=== PATIENT | male | born 1990 | race Caucasian/White ===

== ENCOUNTER 2021-04-19 07:56 | Day surgery (SDC) | payer OTHER ==
--- NOTE | 2021-04-19 08:03 | HP ---
DATE OF SURGERY: 04/19/2021 HISTORY OF PRESENT ILLNESS: The patient is a 30 year-old with some bloody stools and prior colonoscopy years ago. History of abdominal pain, occasional some aches mid abdomen but nothing new. No prior abdominal surgeries. Some increased reflux, history of bloody stools. He is in need of upper endoscopy to evaluate for gastritis, peptic ulcer disease, esophagitis or other etiology as well as given the bloody stools he needs a colonoscopy for further evaluation. PAST MEDICAL HISTORY: He has history of atrial valve leak in the past, he said. Chronic obstructive pulmonary disease. Reflux. Environmental allergies. PAST SURGICAL HISTORY: MEDICATIONS: Omeprazole, inhaler Albuterol, Singulair. ALLERGIES: NKDA. FAMILY HISTORY: Negative for colon cancer. SOCIAL HISTORY: No smoking or alcohol abuse. REVIEW OF SYSTEMS: Fourteen systems reviewed. No chest pain or palpitations. He has some chronic lung issues. Other systems negative or noncontributory as above and per preadmission questionnaire. PHYSICAL EXAMINATION: GENERAL: No acute distress. HEENT: Sclerae nonicteric. NECK: No JVD. CHEST: Equal excursion, nonlabored breathing. CVS: Regular rate and rhythm. ABDOMEN: Soft. No peritoneal signs. EXTREMITIES: No significant edema. NEURO: Alert, oriented, moving extremities symmetrically. No gross motor deficits noted. RECTAL: Deferred timed to endoscopy exam. PSYCH: Appropriate mood and affect. IMPRESSION: Increased reflux. He needs upper endoscopy to evaluate for peptic ulcer disease, gastritis, esophagitis or other etiology. He has had some rectal bleeding. He is in need of colonoscopy for further evaluation to evaluate for colitis, neoplasia, polyps or other etiology. Risks and benefits explained in detail but not limited to bleeding or infection, risk of bowel injury or perforation possibly requiring open procedure, risk of missed or nondiagnosis or incomplete exam possibly requiring barium enema, barium swallow or other studies or procedures. Also inability to diagnose the etiology of his symptoms, general risk of anesthesia or sedation, risk of bowel prep but not limited to. He understands and agrees to the planned procedure, will proceed with colonoscopy to evaluate for his rectal bleeding as well as upper endoscopy to evaluate his increased reflux.
[2021-04-19] MEDS ORDERED: Lactated Ringers 1,000 ML IV SCH (09:00)
[2021-04-19] MEDS ORDERED: DIPRIVAN 200 MG/20 ML IV ONE (10:20)
[2021-04-19] MEDS ORDERED: Xylocaine-Mpf 2% 5 Ml Vial ONE (10:38)
[2021-04-19 11:58] VITALS: O2SAT 96
[2021-04-19 12:14] VITALS: BP 133/67; PULSE 82
--- NOTE | 2021-04-20 08:03 | OP ---
SURGERY DATE/TIME: 04/19/2021 1039 PREOPERATIVE DIAGNOSES: 1) History of some rectal bleeding, history of some increased reflux, need for upper and lower endoscopy to evaluate for gastritis, peptic ulcer disease, esophagitis, colitis or other etiology. 2) ASA Class II. POSTOPERATIVE DIAGNOSES: 1) Minimal to mild gastritis. 2) Plus or minus short segment distal gastroesophagitis versus normal variation of gastroesophageal junction. 3) Some mild erythema of the esophagus, path pending to evaluate for eosinophilic esophagitis. 4) Minimal internal hemorrhoids. No signs of any large polyps, masses or obstructing lesions in the colon, just some mild colon erythema path pending to evaluate for microscopic colitis versus normal variation. PROCEDURES: 1) EGD with cold biopsy of small bowel to evaluate for celiac sprue. 2) Cold biopsy of antrum to evaluate for Helicobacter pylori. 3) Cold biopsy of distal esophagus to evaluate for distal gastroesophagitis. 4) Random cold biopsies mid esophagus to evaluate for eosinophilic esophagitis. 5) Colonoscopy to terminal ileum. 6) Retrograde ileoscopy. 7) Random cold biopsies of ileum to evaluate for microscopic ileitis. 8) Random cold biopsies of colon to evaluate for microscopic colitis. SURGEON: Dr. Ralf Villareal. ANESTHESIA: MAC. ESTIMATED BLOOD LOSS: Minimal. INDICATIONS: As noted above. Risks and benefits explained in detail but not limited to and consent obtained. DESCRIPTION OF PROCEDURE AND FINDINGS: The patient is taken to the operating room. MAC anesthesia introduced. After official time out and no disagreement with planned procedure, bite block positioned. Video gastroscope easily passed down the esophagus through the patent pylorus to the junction of second and third portion of the duodenum. Third portion of the duodenum, second and first portions were grossly unremarkable. No signs of any obvious ulcers or inflammatory lesions. Biopsies were taken to evaluate for celiac sprue given symptom complaint. The scope pulled back into the stomach. He had some mild gastric erythema consistent with some minimal to mild gastritis. Cold biopsy taken to evaluate for Helicobacter pylori. There were no signs of any large polyps, masses, ulcers or any other mucosal lesions other than the inflammation. On retroflex the gastroesophageal junction snug against the scope. No signs of any significant hiatal hernia. Gastroesophageal junction is 40 cm. There may be a 1.5 mm or so maybe of some distal gastroesophagitis versus normal variation of the gastroesophageal junction. Cold biopsy taken. Good hemostasis noted. Further up in the esophagus, he just had some mild erythema and some random cold biopsies were taken to evaluate for eosinophilic esophagitis. Good hemostasis noted. The scope is withdrawn. The patient tolerated this part of the procedure well. Attention is then turned to colonoscopy. Digital rectal exam did not reveal any rectal masses. He did have some minimal internal hemorrhoids. Video colonoscope inserted and passed up through the tortuous sigmoid, descending, transverse colon and ascending colon around to the cecum. At the terminal ileum retrograde ileoscopy is performed. It is grossly unremarkable but given his symptom complaints some cold biopsies taken random in ileum to evaluate for microscopic ileitis, some random cold biopsies of the colon to evaluate for microscopic colitis. He had just some trace erythema of the colon versus prep irritation. Cold biopsy taken to evaluate for microscopic colitis. The scope is slowly and carefully withdrawn. There were no signs of any large polyps, masses or obstructing lesions. He had some minimal internal hemorrhoids, some random cold biopsies were taken to evaluate for microscopic colitis. Findings discussed with the family out in the waiting area. Re-evaluate his umbilical area when he returns to the office in the next couple of weeks as I will be out of town next week. Otherwise no signs of any large polyps, masses or ulcers. I will see him back in the office.
== END 2021-04-19 12:25 | disposition home or self-care (01) ==
LOC: SDC 07:56
PROVIDERS: ATTEND Surgery
DX: K29.70 Gastritis, unspecified, without bleeding (principal); K21.9 Gastro-esophageal reflux disease without esophagitis; K20.90 Esophagitis, unspecified without bleeding; K64.8 Other hemorrhoids
CPT/HCPCS: J2704

== ENCOUNTER 2021-06-14 10:37 | Day surgery (SDC) | payer OTHER ==
--- NOTE | 2021-06-14 08:35 | HP ---
DATE OF SURGERY: 06/14/2021 HISTORY OF PRESENT ILLNESS: The patient is a 30 year-old who had a mid-abdomen incarcerated ventral hernia likely preperitoneal fat or omentum, is in need of repair. PAST MEDICAL HISTORY: Reflux, chronic obstructive pulmonary disease, asthma, seasonal allergies. The patient denied any chronic heart issues. PAST SURGICAL HISTORY: Colonoscopy in the past. Upper endoscopy in the past. MEDICATIONS: Omeprazole, Singulair, Albuterol inhaler. ALLERGIES: NKDA. FAMILY HISTORY: Negative in regards to this problem. SOCIAL HISTORY: No alcohol abuse. REVIEW OF SYSTEMS: Fourteen systems reviewed. No chest pain or palpitations. Other systems negative or noncontributory as above and per preadmission questionnaire. PHYSICAL EXAMINATION: GENERAL: No acute distress. HEENT: Sclerae nonicteric. NECK: No JVD. CHEST: Equal excursion, nonlabored breathing. CVS: Regular rate and rhythm. ABDOMEN: Soft. No peritoneal signs. Incarcerated ventral hernia. EXTREMITIES: No significant edema. NEURO: Alert, oriented, moving extremities symmetrically. PSYCH: Appropriate mood and affect. IMPRESSION: Incarcerated ventral hernia. I feel the patient will benefit from repair. Discussed option of laparoscopic possible open repair with mesh. Risk and benefits explained in detail but not limited to bleeding or infection, risk of trocar injury or hernia, risk of bowel, bladder, blood vessel injury, risk of adhesion, scar formation or obstruction. Perioperative risk of aches, pains, burning, numbness possibly chronic in nature. Risk of hematoma or seroma formation. Remote risk of mesh infection possibly requiring removal. Remote risk of mesh fracture or failure possibly creating issues with viscera or other structures or other procedures, general risk of anesthesia, deep venous thrombosis, pulmonary embolism, pneumonia, risk of hernia recurrence but not limited to. He understands and agrees to the planned procedure and will proceed with outpatient laparoscopic assisted repair of incarcerated ventral hernia repair with mesh possible open.
[~2021-06-14 10:37] MED LIST: CEFAZOLIN 2 GM-D5W BAG** 2 GM/50 ML ML IV ONE; CEFAZOLIN 2 GM-D5W BAG** 2 GM/50 ML ML IV SCH; Lactated Ringers 1,000 ML IV ONE; Lactated Ringers 1,000 ML IV SCH; Sensorcaine 0.25% 10 ML ONE
[2021-06-14] MEDS ORDERED: Zofran 4 MG/2 ML VIAL ONE ×2 (12:55→16:21)
[2021-06-14] MEDS ORDERED: Versed 2 MG/2 ML Injection ONE (12:55)
[2021-06-14] MEDS ORDERED: TORAdol 30 mg Injection ONE (12:55)
[2021-06-14] MEDS ORDERED: BRIDION 200MG/2ML IV ONE (12:55)
[2021-06-14] MEDS ORDERED: DIPRIVAN 200 MG/20 ML IV ONE (12:55)
[2021-06-14] MEDS ORDERED: Decadron 4 MG INJ ONE ×2 (12:55→14:14)
[2021-06-14] MEDS ORDERED: Xylocaine-Mpf 2% 5 Ml Vial ONE (12:55)
[2021-06-14] MEDS ORDERED: Zemuron 100 MG/10 ML ONE (12:55)
[2021-06-14] MEDS ORDERED: SUBLIMAZE 100 MCG/2 ML ONE ×3 (12:55→15:18)
[2021-06-14] MEDS ORDERED: EPINEPHRINE 1MG/ML AMP ONE (14:14)
[2021-06-14] MEDS ORDERED: Naropin 0.5% 30 ML VIAL ONE (14:14)
[2021-06-14] MEDS ORDERED: Triple Antibiotic Ointment ONE (14:17)
[2021-06-14] MEDS ORDERED: Hydromorphone 1 mg/ml Injection ONE (15:18)
[2021-06-14] MEDS ORDERED: Zofran 4 MG/2 ML VIAL IV PRN (16:20)
[2021-06-14 17:54] VITALS: O2SAT 97
[2021-06-14 17:55] VITALS: BP 137/91; PULSE 104
--- NOTE | 2021-06-15 11:50 | OP ---
SURGERY DATE/TIME: 06/14/2021 1303 PREOPERATIVE DIAGNOSIS: Incarcerated ventral hernia. POSTOPERATIVE DIAGNOSIS: Incarcerated ventral hernia. PROCEDURE: Laparoscopic repair of incarcerated ventral hernia with mesh. SURGEON: Dr. Ralf Villareal. ANESTHESIA: General. ESTIMATED BLOOD LOSS: Minimal. INDICATIONS: As noted above. Risks and benefits explained in detail and not limited to and consent obtained. DESCRIPTION OF PROCEDURE AND FINDINGS: The patient is taken to the operating room. General anesthesia induced. Abdomen prepped and draped in usual sterile fashion. After official time out and no disagreement with planned procedure, a transverse incision made left upper quadrant. Fascia grasped and pulled upward. Veress needle inserted and tested with saline. Pneumoperitoneum accomplished opening pressure 0 to 15. A 5 mm bladeless port and camera inserted without difficulty. There is no evidence of any intra-abdominal injury secondary to trocar or port placement. A left mid abdomen 5 mm port, left lower quadrant 5 mm port and a right mid abdomen 5 mm ports were placed under direct vision of the camera. There is no evidence of any intra-abdominal injury secondary to Veress needle or port placement. The preperitoneal space is carefully entered clearing around in the rectus space, posterior to the posterior rectal sheath circumferentially around the mid abdomen. The hernia is a little bit off to the left of the midline. The mid abdomen had a large amount of incarcerated preperitoneal and omental fat this is slowly and carefully reduced. It took some time but slowly and carefully accomplished. Once this is accomplished, the defect is carefully measured in order to have a good overlap in all directions. It was felt the size [address] mesh was the most appropriate sized mesh to use in his particular case. Mesh carefully marked out to where the transfascial stay sutures were to be placed to four quadrants. Four quadrant 0 Ethibond placed on the mesh. The strap was then removed. 0 Vicryl placed in the center of the mesh to be pulled up to center the mesh. At this point a small transverse incision was made to allow for the mesh to be placed in and transfascial #1 Vicryl placed three of these were placed about 1 cm apart bringing the defect back towards midline, weakened edges of the fascia. These were just tied temporarily with a port placed through this defect. The mesh was then wet and easily placed in the abdomen. Transfascial #1 Vicryl were used to bring the weakened fascia back to the midline in interrupted fashion. Once this was accomplished the suture passer was used to pull the centering Vicryl suture up in the midline centering the mesh, the four quadrant 0 Ethibond is then pulled up to four quadrant stab wounds and secured transfascially. This is all done with the pressure turned down to 8 to avoid distortion of the abdominal wall. Once this is accomplished the ProTacker was used about 1 cm apart around the margins with additional tacks placed centrally closer to the true edges of the fascia to reduce the risk of seroma formation. The mesh is nice and flat in tension free manner. Again, the pressure had been turned down to 8 to avoid distortion of the abdominal wall. On careful inspection there is no evidence of any visceral issues. Good hemostasis is noted. Pneumoperitoneum decompressed. Ports removed. Redundant tissue over the hernia site was tacked back down to the level of the fascia. The skin incisions closed with 4-0 Vicryl. 0.25% Marcaine local had been injected along the skin incision. Anesthesia applied tap blocks at the end of the procedure. There were no immediate complications. Findings discussed with the family out in the waiting area. He was transferred to the recovery room in stable condition.
== END 2021-06-14 17:30 | disposition home or self-care (01) ==
LOC: SDC 10:37
PROVIDERS: ATTEND Surgery
DX: K43.6 Other and unspecified ventral hernia with obstruction, without gangrene (principal); Z79.899 Other long term (current) drug therapy
CPT/HCPCS: 49653; C1781; J0171; J0690; J1100; J1170; J1885; J2250; J2405; J2704; J2795; J3010; L0625; A9270-GY